=== PATIENT | male | born 1980 | race Caucasian/White ===

== ENCOUNTER 2016-10-04 09:08 | Emergency (ER) | payer OTHER ==
[~2016-10-04] VITALS: Ht 177.8 cm; Wt 85.8 kg
[2016-10-04 09:09] VITALS: BP 141/85
[2016-10-04] MEDS ORDERED: AMOX500C PO (09:51)
== END 2016-10-04 10:24 | disposition home or self-care (01) ==
LOC: M ED 09:08
DX: H65.92 Unspecified nonsuppurative otitis media, left ear (principal)

== ENCOUNTER → 2022-03-19 | Outpatient (CLI) | payer OTHER ==
[~2022-03-19] MED LIST: AMOX500C PO; NAPR220C14 PO; [UNRECOGNIZED DRUG - CODE] PO
== END ==
LOC: M RAD 14:25
PROVIDERS: ATTEND Otolaryngology
DX: J34.2 Deviated nasal septum (principal); J31.0 Chronic rhinitis; J32.0 Chronic maxillary sinusitis; J34.89 Other specified disorders of nose and nasal sinuses

== ENCOUNTER → 2022-04-04 | Outpatient (CLI) | payer OTHER ==
[~2022-04-04] MED LIST changes: +ISOVUE-300 61% 100ML VIAL ONE; +LIDOCAINE 1% MDV 20ML VIAL ONE; +PROHANCE 279.3MG/ML 5ML VIAL ONE
== END ==
LOC: M PLAIMG 12:26
PROVIDERS: ATTEND Physician Assistant
DX: M25.551 Pain in right hip (principal)
CPT/HCPCS: 27093; 73723; 77002; A9576

== ENCOUNTER 2022-06-16 09:38 | Day surgery (SDC) | payer OTHER ==
[~2022-06-16] VITALS: Ht 177.8 cm; Wt 89.4 kg
[~2022-06-16 09:38] MED LIST changes: +BUPR15TASR PO; -ISOVUE-300 61% 100ML VIAL ONE; -LIDOCAINE 1% MDV 20ML VIAL ONE; +NS 1,000 ML IV ONE; +OMEP40CA5 PO; -PROHANCE 279.3MG/ML 5ML VIAL ONE; +VERA40TA PO
[2022-06-16] MEDS ORDERED: fentaNYL 100 MCG/2 ML INJECTION As Ordered ONE (11:49)
[2022-06-16] MEDS ORDERED: LIDOCAINE 2% 100MG/5ML SDV (FOR ANES.) As Ordered ONE (12:10)
[2022-06-16] MEDS ORDERED: propofoL 200 MG/20 ML VIAL As Ordered ONE (12:10)
[2022-06-16 12:20] VITALS: BP 153/85
== END 2022-06-16 12:30 | disposition home or self-care (01) ==
LOC: M OPP 09:38
PROVIDERS: ATTEND Internal Medicine Gastroenterology
DX: K22.89 Other specified disease of esophagus (principal); K44.9 Diaphragmatic hernia without obstruction or gangrene; K31.89 Other diseases of stomach and duodenum; K29.70 Gastritis, unspecified, without bleeding; K22.70 Barrett's esophagus without dysplasia; Z79.1 Long term (current) use of non-steroidal anti-inflammatories (NSAID); Z79.899 Other long term (current) drug therapy; Z87.891 Personal history of nicotine dependence
CPT/HCPCS: 43239; 88305; J3010

== ENCOUNTER 2024-09-20 15:42 | Emergency (ER) | payer OTHER ==
[~2024-09-20] VITALS: Ht 177.8 cm; Wt 80.2 kg
[~2024-09-20 15:42] MED LIST changes: +LEXA1TAB; -NS 1,000 ML IV ONE
[2024-09-20] MEDS ORDERED: IBUP200C25 PO (15:56)
[2024-09-20] MEDS: BOOSTRIX VACCINE (TETANUS/DIPHTH/ACEL. PERTUSSIS) 0.5 ML SYR IM.IMMUN ONE (17:53)
[2024-09-20] MEDS: LIDOCAINE 2% MDV 20 ML VIAL SC ONE (18:10)
[2024-09-20 18:35] VITALS: TEMP 99.6
[2024-09-20 18:45] VITALS: BP 160/103; O2SAT 97
== END 2024-09-20 19:33 | disposition home or self-care (01) ==
LOC: M ED 15:42
DX: S61.412A Laceration without foreign body of left hand, initial encounter (principal); S71.111A Laceration without foreign body, right thigh, initial encounter; W26.8XXA Contact with other sharp object(s), not elsewhere classified, initial encounter; Y92.009 Unspecified place in unspecified non-institutional (private) residence as the place of occurrence of the external cause; Y93.9 Activity, unspecified; Y99.9 Unspecified external cause status